=== PATIENT | male | born 1980 ===

== ENCOUNTER 2023-04-30 22:32 | Emergency (ER) | payer OTHER, SELFPAY ==
[2023-04-30 23:07] VITALS: BP 124/69; PULSE 69; RESP 18; TEMP 36.9; O2SAT 98; BMI 28.5
--- OUTSIDE RECORDS SUMMARY | 2023-05-01 00:46 | XMS_ITS | Continuity of Care Document ---
Author Name Unknown Address [address] [place] [address] Phone [facility] Address [address] [place] [address] Phone Care Team Providers Care Dinkey Press Operator Name Role Phone [facility] Primary Care Pro vider MD Nayely Curlew Emergency Provider [phone] Chief Complaint and Reason for Visit Chief Complaint POST OP BLEEDING, ST ITCHES GONE, INCISION OPEN Allergies, Adverse Reactions, Alerts Allergen Type Severity Reaction Last Updated Verified Status acetaminophen Allergy Unknown NAUSEA October 17, 2022 3:51pm Yes Active venom-honey bee Allergy HIVES October 17, 2022 3:51p m Yes Active Social History Smoking Status Status Start Date End Date Date of Observa tion Current some day smoker Apru 2018 11:01am Observation Status Observation Response Date of Response Living Situation Apartment October 17, 2 023 6:19pm Lives With Family May 22 9 10:01am Additional Data Assigned Sex Male Problems Active Problems Medical Problem Onset Date Status Infected surgical wound Active Postoperative wound dehiscence A ctive Inactive/Resolved Problems Medical Problem Onset Date Status Cellulitis Resolved Pityriasis rosea Resolved Laceration of right hand Resolve d Medications Medication Status Dose Units Route Directions Qty Days St art Date End Date Instructions Sulfamethoxa zole-Trimeth oprim (Bactrim Ds) 800-160 mg Tablet Active 1 TAB PO EVERY 12 HOURS 20 October 17, 2022 12:00am Immunizations Immunization Event Date Not Given Reason Dose Number Director Mortgage Lot Number Vaccine Information Statement (VIS) Detail Tetanus, Diphtheria, Pertussis (Tdap) May 22, 2019 [id number] Vital Signs Vital Reading Result Reference Range Collection Date/Time Height 165.1 cm October 17, 2 023 3:47pm Weight 74.84 kg October 17, 2 023 3:47pm Body Temperature 98.3 [degF] 97.6-99.6 September 3:47pm Heart Rate 76 /min 60-90 October 17 2 023 3:47pm Respiratory rate 20 /min 12-24 September 3:47pm Oxygen saturation by Pulse oximetry 98 % 95-100 October 17, 2022 3 :47pm BP Systolic 127 mm[Hg] 90-140 October 17, 2 023 3:47pm BP Diastolic 89 mm[Hg] 60-90 October 17, 2 023 3:47pm BMI (Body Mass Index) 27.5 kg/m2 Carrol nunez 2022 3:47pm Advance Directives Advance Directive Response Recorded Date/ Time Advance Directives No October 17, 2022 5:25pm Health Care Proxy No October 17, 2022 5:25pm Insurance Providers Guarantor Jeffery Navarro Address [address] [place] [id number] Contact Info. Home Phone: Payer Policy Id Coverage Id Subscriber's Name Subscriber Id Effective Date Expiration Date [facility] (Medicaid) [id number] Jeffery Navarro [id number] [facility] No PCC Self Pay Self N/A SP Pending Medicaid Not Comp 0001 0001 Jeffery Navarro 0001 SP Pending Medicaid Apps [id number] Jeffery Navarro [id number] Encounters Encounter Location(s) Arrival/Admit Date Discharge/Depart Date Provider(s) Departed Emergency [facility] October 17, 2022 3:04pm October 17, 2022 6:59pm null Plan of Treatment Future Tests Future scheduled test information is unavailable Pending Tests Pending diagnostic test information is unavailable Future Visits Future appointment information is unavailable Referrals to Other Providers Reason for Referral Referral Start Date Provider Provider Contact Information Provider Address [facility] Work Phone: [address] [place] [phone] Future Procedures Future procedure information is unavailable Future Medications Future medication information is unavailable Patient Instructions ED Post Op Wound Check, Infe ction Goals Acute Goals Take all of the Bactrim anti biotic as prescribed, even if you feel better. You can take ibuprofen 600 mg every 6 to 8 hours for pain and/or fever as needed. Your urologist's office will call you tomorrow morning to make a follow-up appointment. If you do not hear from them by 11 a.m., call their office at00 .
--- OUTSIDE RECORDS SUMMARY | 2023-05-01 00:46 | XMS_ITS | Continuity of Care Document ---
Author Name [facility] Address [address] [place] [address] Organization [facility] Address [address] [place] [address] Support Name Relationship Address Phone [facility] Primary Care Provider [address] [phone] Rehana Armenta Emergency Provider [facility] atul - Emergency [address] [place], [place] [phone] Allergies, Adverse Reactions, Alerts Allergen Type Severity Reaction Last Updated Verified Status acetaminophen Allergy Unknown NAUSEA April 18, 2019 Y Acti ve venom-honey bee Allergy HIVES April 18, 2019 Y Ac tive Medications No known medications. Problem List Active Problems Medical Problem Onset Date Status Cellulitis Active Inactive/Resolved Problems Medical Problem Onset Date Status Pityriasis rosea Inactive Procedures No known history of procedures. Relevant Diagnostic Tests and/or Laboratory Data No known relevant diagnostic tests, laboratory data, and/or discharge summary. Advance Directives Advance Directive Response Recorded Date/ Time Advance Directives No April 18, 2019 9:28pm Health Care Proxy No April 18, 2019 9:28pm Hospital Discharge Instructions No known hospital discharge instructions. Encounters Encounter Facility Location Admit/Visit Date Discharge/Departure Date Attending Provider Departed Emergency [facility] Emergency Room April 18, 2019 9:17pm April 18, 2019 10:50pm Functional Status No known functional status. Immunizations No known immunizations. Payers Payer Name Policy Type Covered Republican Covered Republican Id Relationship Subscriber Subscriber Id [facility]Net (Medicaid) Commercial Jeffery Melanie [id number] Self / Same As Patient Jeffery Navarro [id number] Self Pay Personal Payment ([place] - No Insurance) Plan of Care No Known Plan of Care Information Social History Query Response Date Recorded Comment Lives With Alone April 18, 2019 10:36pm Query Response Start Date Stop Date Smoking Status Unknown if ever smoked Vital Signs Vital Reading Result Reference Range Collection Date/Time Height 1.65 m April 18, 2019 9 :19pm Weight 86.183 kg April 18, 2019 9 :19pm Temperature 98.5 F 97.6 F-99.6 F April 18, 2019 9:19pm Pulse 94 BPM 60-90 April 18, 2019 9 :19pm Respiration 18 RPM 12-24 April 18, 2019 9 :19pm Pulse Oximetry 95 % 95-100 April 18, 2019 9:19pm Blood Pressure Systolic 127 90-140 April 18, 2019 9:19pm Blood Pressure Diastolic 77 60-90 Mar 9:19pm Body Mass Index 31.6 April 18 9 9:19pm
--- OUTSIDE RECORDS SUMMARY | 2023-05-01 00:46 | XMS_ITS | Continuity of Care Document ---
Author Name [facility] Address [address] [place] [address] Organization [facility] Address [address] [place] [address] Support Name Relationship Address Phone [facility] Primary Care Provider [address] [phone] Rehana Armenta Emergency Provider [facility] taul - Emergency [address] [place], [place] [phone] Allergies, Adverse Reactions, Alerts Allergen Type Severity [...] Date Discharge/Departure Date Attending Provider Departed Emergency [facility] Emergency Room April 18, 2019 9:17pm April 18, 2019 10:50pm Functional Status No known functional status. Immunizations No known immunizations. Payers Payer Name Policy Type Covered Constitution Party Covered Constitution Party Id Relationship Subscriber Subscriber Id [facility]Net (Medicaid) Commercial Jeffery Navarro [id number] Self / Same As Patient Jeffery Navarro [id number] Self Pay Personal Payment ([place] - No Insurance) SP Pending Medicaid Not Comp Personal Payment ([place] - No Insurance) Jeffery Navarro 2018 Self / Same As Patient Jeffery Navarro 0001 Plan of Care No Known Plan of [...]
--- OUTSIDE RECORDS SUMMARY | 2023-05-01 00:46 | XMS_ITS | Continuity of Care Document ---
Author Name [facility] Address [address] [place] [address] Organization [facility] Address [address] [place] [address] Support Name Relationship Address Phone [facility] Primary Care Provider [address] [phone] Dm Sylvester Emergency Provider [address] [place], [place] [phone] Allergies, Adverse Reactions, Alerts Allergen Type Severity Reaction Last Updated Verified Status acetaminophen Allergy Unknown NAUSEA May 22, 2019 Y Ac tive venom-honey bee Allergy HIVES May 22, 2019 Y Active Medications No known medications. Problem List Active Problems Medical Problem Onset Date Status Laceration of right hand Active Inactive/Resolved Problems Medical Problem Onset Date Status Cellulitis Inactive Pityriasis rosea Inactive Procedures No known history of procedures. Relevant Diagnostic Tests and/or Laboratory Data No known relevant diagnostic tests, laboratory data, and/or discharge summary. Advance Directives Advance Directive Response Recorded Date/ Time Advance Directives No May 22 19 11:07am Health Care Proxy No May 22 9 11:07am Chief Complaint and Reason for Visit Encounter Admit Date Chief Complaint Reason for V isit Departed Emergency May 22, 2019 10:38am [facility] Discharge Instructions No known hospital discharge instructions. Encounters Encounter Facility Location Admit/Visit Date Discharge/Departure Date Attending Provider Departed Emergency [facility] Emergency Room May 22, 2019 10:38am May 22, 2019 12:07pm Functional Status No known functional status. Immunizations Immunization Name Date Given Type Tetanus, Diphtheria, Pertussis (Tdap) May 22, 2019 Administered Payers Payer Name Policy Type Covered Democrat Covered Democrat Id Relationship Subscriber Subscriber Id [facility] HealthNet (Medicaid) Commercial Jeffery Navarro [id number] Self / Same As Patient Jeffery Navarro [id number] [facility] No PCC Medicaid Self Pay Personal Payment ([place] - No Insurance) SP Pending Medicaid Not Comp Personal Payment ([place] - No Insurance) Jeffery Navarro 0001 Self / Same As Patient Jeffery Navarro 0001 SP Pending Medicaid Apps Personal Payment ([place] - No Insurance) Jeffery Navarro [id number] Self / Same As Patient Jeffery Navarro [id number] Plan of Care No Known Plan of Care Information Social History Query Response Date Recorded Comment Lives With Family May 22, 2019 11:01am Living Situation Private Home May 22, 2019 11:01am Query Response Start Date Stop Date Smoking Status Current some day smoker Vital Signs Vital Reading Result Reference Range Collection Date/Time Height 1.65 m May 22, 2019 10:45am Weight 83.915 kg May 22, 2019 10:45am Temperature 98.1 F 97.6 F-99.6 F May 22 201 9 10:45am Pulse 79 BPM 60-90 May 22, 2019 10:45am Respiration 18 RPM 12-May 22, 2019 10:45am Pulse Oximetry 97 % 95-100 May 22 19 10:45am Blood Pressure Systolic 113 90-140 2018 10:45am Blood Pressure Diastolic 98 60-90 Apr us2018 10:45am Body Mass Index 30.8 May 22 019 10:45am
--- OUTSIDE RECORDS SUMMARY | 2023-05-01 00:46 | XMS_ITS ---
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 Problem Screening for diabetes mellitus Z13.1 Active 492669967 Problem Alcohol abuse F10.10 Active 81037117 ALLERGIES Substance Reaction Event Type Date Status bees Unknown Non Drug Allergy Jul, Active Aspirin rash Drug Allergy Jul, Inactive ENCOUNTERS Encounter Location Date Diagnosis [address] [address] Jul, Phimosis N47.1 ; Subluxation of shoulder joint, unspecified laterality, subsequent encounter S43.003D and Screening for diabetes mellitus Z13.[address] [address] Jun, Alcohol abuse F10.10 and Degeneration of meniscus of left knee M23.[address] [address] Jun, [address] [address] May, [address] [address] May, [address] [address] 11 May, 2019 Cutaneous abscess of unspecified hand L02.[address] [address] 09 May, 2019 Cutaneous abscess of unspecified hand L02.519 ; Cellulitis of unspecified part of limb L03.119 and Cellulitis of unspecified finger L03.[address] [address] Jul, Alcohol abuse F10.[address] [address] Jul, Foreign body sensation in throat R09.89 and Alcohol abuse F10.[address] [address] Nov, [address] [address] Nov, Acute left-sided low back pain without sciatica M54.5 ; Healthcare maintenance Z00.00 ; Scabies B86 and Cough R05 [address] [address] 06 Jun, 2015 Tick bite W57.XXXA and Chest wall pain R07.[address] [address] Feb, [address] [address] January, Low back pain 724.2 ; Lumbar facet arthropathy 721.3 ; Shoulder impingement syndrome 726.2 ; Smoker 305.1 ; Hand pain 729.5 and Bee sting allergy V15.[address] [address] Nov, [address] [address] Oct, [address] [address] Oct, [address] [address] Sep, IMMUNIZATIONS Vaccine Route Administration Date Status Ketorolac Tromethamine 30 MG/1 ML IM Intramuscular Sep 2018 Administered SOCIAL HISTORY Qualifiers Date Current Smoker REASON FOR REFERRAL FUNCTIONAL STATUS PLAN OF CARE Activity Details VITAL SIGNS Height 5 ft 4 in in 2022-08-26 Height 5 ft 4 in in 2019-06-07 Height 5 ft 4 in in 2018-08-10 Height 5 ft 4 in in 2017-12-03 Height 5 ft 4 in in 2015-07-04 Height 5 ft 4 in in 2015-01-31 Weight 168.8 lbs 2022-08-26 Weight 160.8 lbs 2019-06-07 Weight 186.2 lbs 2018-08-10 Weight 176.4 lbs 2017-12-03 Weight 145.4 lbs 2015-07-04 Weight 143.8 lbs 2015-01-31 BMI 28.97 kg/m2 2022-08-26 BMI 27.60 kg/m2 2019-06-07 BMI 31.96 kg/m2 2018-08-10 BMI 30.28 kg/m2 2017-12-03 BMI 24.96 kg/m2 2015-07-04 BMI 24.68 kg/m2 2015-01-31 Heart Rate 104 /min 2022-08-26 Heart Rate 82 /min 2019-06-07 Heart Rate 73 /min 2018-08-10 Heart Rate 77 /min 2017-12-03 Heart Rate 60 /min 2015-07-04 Heart Rate 72 /min 2015-01-31 Respiratory Rate 18 /min 2019-06-07 Respiratory Rate 17 /min 2018-08-10 Respiratory Rate 17 /min 2017-12-03 Respiratory Rate 16 /min 2015-07-04 Respiratory Rate 17 /min 2015-01-31 Temperature orally:98 degrees Fahrenheit 11-09-27 Temperature orally:99.3 degrees Fahrenheit 2 Temperature orally:97.7 degrees Fahrenheit Temperature 97.7 degrees Fahrenheit Temperature orally:97.8 degrees Fahrenheit 2 Temperature orally:98.1 degrees Fahrenheit 2 Blood pressure systolic 102 mm hg Blood pressure diastolic 63 mm hg 2022-07 MEDICATIONS Medication Instructions Dosage Frequency Start Date End Date Duration Status Triamcinolone Acetonide 0.5 % Externally Twice a day 1 application Jul, 14 days Active Naproxen 500 MG Orally Twice a day 1 tablet as needed 12h May, 30 days Not-Taki ng PROCEDURES Procedure Date Ordered Result Body Site Ketorolac Tromethamine 15 MG Jun 07, 2019 THER/PROPH/DIAG INJ, SC/IM Jun 07, 2019 GLUCOSE BLOOD TEST Aug 26, 2022 T1015 for 36089 Aug 10, 2018 T1015 for 99232 December 03, 2017 T1015 for 68199 Jun 07, 2019 CAPILLARY BLOOD DRAW Aug 26, 2022 RESULTS Name Result Date Reference Range Fingerstick Glucose 2022-08-26 Glucose 97 SUSCEPTIBILITY TESTING 2019-06-07 Cefazolin Susc Islt Clindamycin Susc Islt 0.25 Linezolid Susc Islt 2 Oxacillin Susc Islt >=4 Tetracycline Susc Islt <=1 TMP SMX Susc Islt <=10 Vancomycin Susc Islt 1 WOUND CULTURE + GRAM STAIN 2019-06-07 Microorganism XXX Cult 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 Gram Stn XXX No organisms seen X ray : Spines, lumbar 2 views Chest X-ray PA and lateral COMPREHENSIVE METABOLIC PANEL 2017-12-03 Sodium SerPl-sCnc 141 137-147 Potassium SerPl-sCnc 4.5 3.5-5.4 Chloride SerPl-sCnc 102 96-107 CO2 SerPl-sCnc 25 24-34 Anion Gap SerPl-sCnc 14 4-15 Glucose SerPl-mCnc 111 70-100 Creat SerPl-mCnc 0.79 0.60-1.50 GFR/BSA.pred SerPl MDRD-ArVRat >60 60-115 BUN SerPl-mCnc 8 6-26 Calcium SerPl-mCnc 9.7 8.7-10.5 Prot SerPl-mCnc 7.6 6.4-8.6 Albumin SerPl-mCnc 4.4 3.4-4.8 Albumin/Glob SerPl 1.4 1.0-2.3 Bilirub SerPl-mCnc 0.3 0.2-1.2 AST SerPl-cCnc 25 0-40 ALP SerPl-cCnc 85 40-150 ALT SerPl-cCnc 17 0-45 LIPID PANEL* 2017-12-03 Cholest SerPl-mCnc 188 0-199 Trigl SerPl-mCnc 139 10-200 HDLc SerPl-mCnc 34.6 35.0-70.0 LDLc SerPl Calc-mCnc 126 0-100 CHD risk SerPl-Rto 5.4 0.0-5.0 CBC W/ AUTO DIFFERENTIAL 2017-12-03 WBC # Bld Auto 14.5 4.8-11.2 RBC # Bld Auto 5.16 4.00-5.90 Hgb Bld-mCnc 15.7 14.0-17.2 Hct VFr Bld Auto 48.8 40.0-52.0 MCV RBC Auto 94.6 82.0-98.0 MCH RBC Qn Auto 30.5 27.0-35.0 MCHC RBC Auto-mCnc 32.3 32.0-37.0 RDW RBC Auto-Rto 12.8 12.0-15.0 Platelet # Bld Auto 284 150-400 PMV Bld Auto 6.6 7.0-14.0 Granulocytes # Bld 84.2 45.0-85.0 Lymphocytes NFr Bld 13.3 15.0-45. 0 Monocytes NFr Bld 2.5 0.0-12.0 Granulocytes # Bld Auto 12.2 2.2- 9.5 Lymphocytes # Bld Auto 1.9 0.7-5 .0 Monocytes # Bld Auto 0.4 0.0-1.3 REASON FOR VISIT discuss referral to urologist, Sammie, Telephonic: L knee pain-no injury, swelling, lots of pain. Pt unable to come into clinic today. , Intake done/SF, Telephonic: L knee pain-no injury, swelling, lots of pain. Pt unable to come into clinic today. CANCELED APPT due to no insurance Spoke to pt 07/21/20, Triage: knee injury, R/S from NS'd appt 07/05 fu hand & shoulder, Patient is c/o L shoulder pain, Records: Hand Surgeon , Records: Surgeon, F/u Abx , Patient presents here with R hand pointer finger cut w/table saw 2wks ago, had stitches removed @ [facility] , c/o pussing and swelling, location of the stiches being removed area of the 1st finger top of metacarpal, labs needed, Pt ishere to re- establish care, BMI is in red , Pt needs refill on EpiPen, Pt states he fell off a ladder last week and has left sided back pain, Pt states he was in [place] for a weekend 2 weeks ago and believes he has scabies , pain on right side/wrist, L Lower rib pain, FYI, 4 wk f/u, back pain Insurance Providers Health Insurance Type Health Plan Insurance Address Health Plan Insurance Phone Health Plan Insurance Name Health Plan Coverage Dates Member ID Patient Relationship to Subscriber Patient Address Patient Phone Patient Name Patient Date of Subscriber ID Subscriber Name Subscriber Date of Group No [facility] [address] [facility] [address] [facility] self Jeffery Navarro [id number] [facility] [address] [address] [facility] [address] [phone] [facility] self Jeffery Navarro [id number] [facility] Office Medical 2 [facility] [id number] Health Safety [facility] Office Medical self Jeffery Navarro [id number] [facility] [address] [address] [facility] [address] [id number] 08 [facility] self Jeffery Navarro [id number] [facility] [address] Attn Claims [facility] [address] [facility] self Jeffery Navarro [id number]
--- OUTSIDE RECORDS SUMMARY | 2023-05-01 00:46 | XMS_ITS | Continuity of Care Document ---
Author Name [facility] Address [address] [place] [address] Organization [facility] Address [address] [place] [address] Support Name Relationship Address Phone [facility] Primary Care Provider [address] [phone] Rehana Armenta Emergency Provider [facility] atul - Emergency [address] [place], [place] [phone] Allergies, Adverse Reactions, Alerts Allergen Type Severity [...] Date Discharge/Departure Date Attending Provider Departed Emergency [facility] Emergency Room April 18, 2019 9:17pm April 18, 2019 10:50pm Functional Status No known functional status. Immunizations No known immunizations. Payers Payer Name Policy Type Covered Republican Covered Republican Id Relationship Subscriber Subscriber Id [facility] (Medicaid) Commercial Jeffery Navarro [id number] Self / Same As Patient Jeffery Navarro [id number] Self Pay Personal Payment ([place] - No Insurance) SP Pending Medicaid Not Comp Personal Payment ([place] - No Insurance) Jeffery Navarro 2018 Self / Same As Patient Jeffery Melanie 0001 SP Pending Medicaid Apps Personal Payment ([place] - No Insurance) Jeffery Navarro [id number] Self / Same As Patient Jeffery Mckees [id number] Plan of Care No Known Plan of [...]
--- OUTSIDE RECORDS SUMMARY | 2023-05-01 00:46 | XMS_ITS | Continuity of Care Document ---
Author Name [facility] Address [address] [place] [address] Organization [facility] Address [address] [place] [address] Support Name Relationship Address Phone [facility] Primary Care Provider [address] [phone] Rehana Armenta Emergency Provider [facility] atul - Emergency [address] [place], [place] [phone] Allergies, Adverse Reactions, Alerts Allergen Type Severity [...] Date Discharge/Departure Date Attending Provider Departed Emergency [facility] Emergency Room April 18, 2019 9:17pm April 18, 2019 10:50pm Functional Status No known functional status. Immunizations No known immunizations. Payers Payer Name Policy Type Covered Libertarian Covered Libertarian Id Relationship Subscriber Subscriber Id [facility] HealthNet (Medicaid) Commercial Jeffery Navarro [id number] Self / Same As Patient Jeffery Navarro [id number] [facility] No [facility] Medicaid Self Pay Personal Payment ([place] - No Insurance) SP Pending Medicaid Not Comp Personal Payment ([place] - No Insurance) Jeffery Navarro 2018 Self / Same As Patient Jeffery Navarro 2018 SP Pending Medicaid Apps Personal Payment ([place] - No Insurance) Jeffery Navarro [id number] Self / Same As Patient Jeffery Navarro [id number] Plan of Care No Known Plan of [...]
== END 2023-05-01 00:57 | disposition left against medical advice (07) ==
LOC: HO.ED 05-01 00:44
PROVIDERS: Emergency Provider Emergency Medicine
DX: H53.141 Visual discomfort, right eye (principal)
CPT/HCPCS: 99281